=== PATIENT | male | born 1970 ===

== ENCOUNTER 2019-05-29 15:22 | Inpatient (IN) | payer OTHER ==
[2019-05-29 16:18] LABS: ABS Eosinophils 0.1 10^3/ul (0-0.6); ABS Lymphocytes 0.3 10^3/ul (1.0-4.8); ABS Monocytes 0.8 10^3/ul (0-0.8); ABS Neutrophils 13.4 10^3/ul (1.5-7.7); Eosinophil % 0.4 %; Hematocrit 39 % (42-52); Lymphocyte % 2.2 %; Mean Corpuscular HGB Conc 33 g/dL (31-36); Mean Corpuscular Hemoglobin 26 pg (27-31); Mean Corpuscular Volume 77 fL (80-94); Red Blood Count 5.09 10^6 /uL (4.18-5.48); Red Cell Distribution Width 15 % (10-15); White Blood Count 14.6 10^3/uL (3.5-10.8)
[2019-05-29 16:26] LABS: ALT 102 U/L (7-52); AST 71 U/L (13-39); Albumin 3.8 g/dL (3.2-5.2); Albumin/Globulin Ratio 1.3 (1-3); Alkaline Phosphatase 67 U/L (34-104); Anion Gap 9 mmol/L (2-11); Blood Urea Nitrogen 27 mg/dL (6-24); CO2 Carbon Dioxide 24 mmol/L (22-32); Calcium 8.6 mg/dL (8.6-10.3); Chloride 106 mmol/L (101-111); EGFR African American 91.8 (>60); EGFR Non-African American 75.9 (>60); Glucose 109 mg/dL (70-100); Magnesium 2.1 mg/dL (1.9-2.7); Potassium 3.9 mmol/L (3.5-5.0); Sodium 139 mmol/L (135-145); Total Protein 6.8 g/dL (6.4-8.9)
--- NOTE | 2019-05-29 16:31 | ED ---
Dizziness - HPI Summary HPI Summary: This patient is a 49 year old male presenting to [facility] with a chief complaint of fatigue and lightheadedness. He states woke up this morning with these symptoms. He states he had a headache last night. His caregiver states he was not producing words right. He denies cough. 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 Character: Lightheaded - Allergies/Home Medications Allergies/Adverse Reactions: Allergies Allergy/AdvReac Type Severity Reaction Status Date / Time No Known Allergies Allergy Verified 05/29/19 15:28 Home Medications: Home Medications Methylphenidate HCl [Methylphenidate HCl ER] 20 mg PO DAILY 05/29/19 [History Confirmed 05/29/19] Tolterodine Tartrate [Detrol LA] 4 mg PO DAILY 05/29/19 [History Confirmed 05/29] PMH/Surg Hx/FS Hx/Imm Hx Endocrine/Hematology History: Denies: Hx Diabetes Cardiovascular History: Denies: Hx Congestive Heart Failure, Hx Hypertension History: Denies: Hx Renal Disease Neurological History: Reports: Other Neuro Impairments/Disorders - SPINAL STENOSIS SURGERY (C-SPINE) 5 YRS AGO, ANTERIOR APPROACH - Surgical History Surgery Procedure, Year, and Place: FOR SPINAL STENOSIS Infectious Disease History: No Infectious Disease History: Denies: Traveled Outside the [place] in Last 30 Days - Family History Known Family History: Negative: Seizure Disorder - Social History Alcohol Use: Occasionally Substance Use Type: Reports: None Smoking Status (MU): Never Smoked Tobacco Review of Systems Positive: Fatigue Negative: Cough Neurological: Other - Dizziness, unable to form words/phrases Positive: Headache All Other Systems Reviewed And Are Negative: Yes Physical Exam - Summary Physical Exam Summary: Appearance: The patient is well-nourished in no acute distress and in no acute pain. Skin: The skin is warm and dry and skin color reflects adequate perfusion. HEENT: The head is normocephalic and atraumatic. The pupils are equal and reactive. The conjunctivae are clear and without drainage. Nares are patent and without drainage. Mouth reveals moist mucous membranes and the throat is without erythema and exudate. The external ears are intact. The ear canals are patent and without drainage. The tympanic membranes are intact. Neck: The neck is supple with full range of motion and non-tender. There are no carotid bruits. There is no neck vein distension. Respiratory: Chest is non-tender. Lungs are clear to auscultation and breath sounds are symmetrical and equal. Cardiovascular: Heart is regular rate and rhythm. There is no murmur or rub auscultated. There is no peripheral edema and pulses are symmetrical and equal. Abdomen: The abdomen is soft and non-tender. There are normal bowel sounds heard in all four quadrants and there is no organomegaly palpated. Musculoskeletal: There is no back tenderness noted. Extremities are non-tender with full range of motion. There is good capillary refill. There is no peripheral edema or calf tenderness elicited. Neurological: Patient is alert and oriented to person, place and time. The patient has symmetrical motor strength in all four extremities. Cranial nerves are grossly intact. Deep tendon reflexes are symmetrical and equal in all four extremities. Psychiatric: The patient has an appropriate affect and does not exhibit any anxiety or depression. Triage Information Reviewed: Yes Vital Signs On Initial Exam: Initial Vitals Temp Pulse Resp BP Pulse Ox 99.8 F 74 19 92/52 96 05/29/19 15:23 05/29/19 15:23 05/29/19 15:23 05/29/19 15:23 05/29/19 15:23 Vital Signs Reviewed: Yes Procedures - Sedation Patient Received Moderate/Deep Sedation with Procedure: No Diagnostics - Vital Signs Vital Signs Temp Pulse Resp BP Pulse Ox 05/29/19 15:23 99.8 F 74 19 92/52 96 - Laboratory Lab Results: Lab Results 05/29/19 Range/Units 16:01 WBC 14.6 H (3.5-10.8) 10^3/uL RBC 5.09 (4.18-5.48) 10^6 /uL Hgb 13.0 L (14.0-18.0) g/dL Hct 39 L (42-52) % MCV 77 L (80-94) fL MCH 26 L (27-31) pg MCHC 33 (31-36) g/dL RDW 15 (10-15) % Plt Count Pending MPV Pending Neut % (Auto) 92.1 % Lymph % (Auto) 2.2 % [place] % (Auto) 5.2 % Eos % (Auto) 0.4 % Baso % (Auto) 0.1 % Absolute Neuts (auto) 13.4 H (1.5-7.7) 10^3/ul Absolute Lymphs (auto) 0.3 L (1.0-4.8) 10^3/ul Absolute Monos (auto) 0.8 (0-0.8) 10^3/ul Absolute Eos (auto) 0.1 (0-0.6) 10^3/ul Absolute Basos (auto) 0.0 (0-0.2) 10^3/ul Absolute Nucleated RBC 0.0 10^3/ul Nucleated RBC % 0.0 Result Diagrams: 05/29/19 16:01 05/29/19 16:01 Lab Statement: Any lab studies that have been ordered have been reviewed, and results considered in the medical decision making process. - EKG 1529 Cardiac Rate: NL - 75 BPM EKG Rhythm: Sinus Rhythm Summary of EKG Findings: Probable subacute septal infarct. ED Physician has reviewed and interpreted this EKG. 1639 Cardiac Rate: NL - 72 BPM EKG Rhythm: Sinus Rhythm Summary of EKG Findings: Probable septal ischemia. ED Provider has reviewed and interpreted this EKG. Dizzy Course/Dx - Course Course Of Treatment: Mr. Mayfield was nontoxic in appearance on presentation. He was articulate and oriented at that time. He has a history of urinary tract infections as he self catheters secondary to paraplegia. I expected that this was likely a urinary tract infection and ordered fluids and antibiotics for him. His troponin surprisingly returned at 0.24. His EKG showed no acute change from previous EKGs. I spoke with Dr. Calles who recommended serial EKGs and troponins while treating for presumed sepsis. - Diagnoses Provider Diagnoses: UTI (urinary tract infection), Elevated troponin - Provider Notifications Discussed Care Of Patient With: Domingo Calles - Cardiology Time Discussed With Above Provider: 17:07 - Critical Care Time Critical Care Time: 30-74 min Discharge ED - Sign-Out/Discharge Documenting (check all that apply): Patient Departure - Admission - Discharge Plan Condition: Stable Disposition: ADMITTED TO [facility] Referrals: Jose Daniel Prescott MD [Primary Care Provider] - - Billing Disposition and Condition Condition: STABLE Disposition: Admitted to [facility] - Attestation Statements Document Initiated by Scribe: Yes Documenting Scribe: Noman Potts Provider For Whom Jayceeibe is Documenting (Include Credential): Cholo Cesar MD Scribe Attestation: I, Noman Potts, scribed for Cholo Cesar MD on 05/29/19 at 1900. Scribe Documentation Reviewed: Yes Provider Attestation: The documentation as recorded by the jayceeibe, Noman Potts accurately reflects the service I personally performed and the decisions made by me, Cholo Cesar MD Status of Scribe Document: Viewed
[2019-05-29 16:32] LABS: Troponin I 0.24 ng/mL (<0.03)
[2019-05-29 16:44] LABS: Mean Platelet Volume 8.5 fL (7.4-10.4); Platelet Count 96 10^3/uL (150-450)
[2019-05-29 16:48] LABS: Urine Appearance Cloudy; Urine Bilirubin Negative (Negative); Urine Blood 3+ (Negative); Urine Color Amber; Urine Glucose Negative (Negative); Urine Ketones Negative (Negative); Urine Nitrite Positive (Negative); Urine Protein 2+(100 mg/dL) (Negative); Urine Specific Gravity 1.019 (1.010-1.030); Urine Urobilinogen Negative (Negative)
[2019-05-29] MEDS ORDERED: NS 0.9% 1000 ML** 2,000 ML IV ONE (16:51)
[2019-05-29] MEDS ORDERED: Ciprofloxacin 400MG IVPREMIX(* 400 MG/200 ML BAG IVPB ONE (16:52)
[2019-05-29 16:53] LABS: Urine Bacteria Absent (Absent); Urine Red Blood Cell 3+(>10/hpf) (Absent); Urine White Blood Cell 3+(>20/hpf) (Absent)
[2019-05-29 17:05] LABS: TSH (Thyroid Stimulating Horm) 2.65 mcIU/mL (0.34-5.60)
[2019-05-29 17:51] LABS: C Reactive Protein 210.99 mg/L (<8.01)
[2019-05-29 18:04] LABS: LDH 284 U/L (140-271)
[2019-05-29 18:05] LABS: Cholesterol 143 mg/dL; HDL Cholesterol 54.7 mg/dL; LDL Cholesterol 59 mg/dL; Triglycerides 148 mg/dL
[2019-05-29] MEDS ORDERED: Atorvastatin* 40 MG TAB PO ONE (18:34)
[2019-05-29] MEDS ORDERED: Aspirin 81 mg CHEW TAB* 81 MG TAB.CHEW PO ONE (18:34)
[2019-05-29 18:43] LABS: Erythrocyte Sed Rate 14 mm/Hr (0-14)
[2019-05-29] MEDS ORDERED: hydrALAZINE IV* 20 MG/ML VIAL IV SLOW PU PRN ×2 (19:33→19:35)
[2019-05-29] MEDS ORDERED: Labetalol IV* 5 MG/ML 20 ML VIAL IV PUSH PRN (19:34)
[2019-05-29 19:45] LABS: Troponin I 0.19 ng/mL (<0.03)
[2019-05-29 20:37] LABS: Hepatitis B Surface Antigen Nonreactive (Nonreactive)
[2019-05-29 20:54] LABS: Hepatitis C Antibody Negative (Negative)
[2019-05-29] MEDS: Baclofen TAB* 20 MG PO SCH (20:57)
[2019-05-29] MEDS: Acetaminophen TAB* 325 MG PO PRN (21:46)
[2019-05-29 22:19] LABS: Influenza A Molecular Negative (Negative); Influenza B Molecular Negative (Negative)
[2019-05-29 22:35] LABS: Troponin I 0.18 ng/mL (<0.03)
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
[2019-05-29] MEDS ORDERED: Acetaminophen TAB* 325 MG PO ONE (23:34)
[2019-05-30] MEDS: cefTRIAXone(*) 1 GM in NS 0.9% 50 ML* 50 ML IVPB SCH ×2 (01:36→20:22)
[2019-05-30 06:29] LABS: Hematocrit 35 % (42-52); Hemoglobin 11.5 g/dL (14.0-18.0); Mean Corpuscular HGB Conc 33 g/dL (31-36); Mean Corpuscular Hemoglobin 26 pg (27-31); Mean Corpuscular Volume 77 fL (80-94); Mean Platelet Volume 8.8 fL (7.4-10.4); Platelet Count 69 10^3/uL (150-450); Red Blood Count 4.46 10^6 /uL (4.18-5.48); Red Cell Distribution Width 15 % (10-15); White Blood Count 10.7 10^3/uL (3.5-10.8)
[2019-05-30 06:46] LABS: Albumin 3.2 g/dL (3.2-5.2); Albumin/Globulin Ratio 1.3 (1-3); BUN/Creatinine Ratio 29.5 (8-20); Calcium 7.9 mg/dL (8.6-10.3); EGFR Non-African American 105.8 (>60); Globulin 2.5 g/dL (2-4); Indirect Bilirubin 0.4 mg/dL (0.3-1.0); Potassium 3.3 mmol/L (3.5-5.0); Total Bilirubin 0.6 mg/dL (0.2-1.0); Total Protein 5.7 g/dL (6.4-8.9)
[2019-05-30 07:30] LABS: Microcytosis 1+
[2019-05-30 07:32] LABS: ABS Eosinophils 0.1 10^3/ul (0-0.6); ABS Lymphocytes 0.7 10^3/ul (1.0-4.8); ABS Monocytes 0.6 10^3/ul (0-0.8); ABS Neutrophils 9.3 10^3/ul (1.5-7.7); Eosinophil % 0.9 %; Lymphocyte % 6.5 %
--- NOTE | 2019-05-30 09:32 | PN ---
Subjective Date of Service: 05/30/19 Interval History: Pt is feeling ok this AM. He continued to have chills last night. He states he still feels more lethargic than normal. He ate without difficulty this AM. Objective Active Medications: Acetaminophen (Tylenol Tab*) 650 mg PO Q6H PRN PRN Reason: TEMPERATURE > 100.4 Last Admin: 05/29/19 21:46 Dose: 650 mg Aspirin (Aspirin 81 Mg Chew Tab*) 81 mg PO DAILY REPLACED BY [facility] Atorvastatin Calcium (Lipitor*) 40 mg PO 1700 REPLACED BY [facility] Baclofen (Lioresal Tab*) 20 mg PO QID REPLACED BY [facility] Last Admin: 05/29/19 20:57 Dose: 20 mg Enoxaparin Sodium (Lovenox(*)) 40 mg SUBCUT Q24H REPLACED BY [facility] Hydralazine HCl (Apresoline Iv*) 20 mg IV SLOW PU Q2H PRN PRN Reason: BLOOD PRESSURE Ceftriaxone Sodium 1 gm/ (Sodium Chloride) 50 mls @ 100 mls/hr IVPB Q24HR@2100 REPLACED BY [facility] Last Admin: 05/30/19 01:36 Dose: 100 mls/hr Labetalol HCl (Trandate Iv*) 20 mg IV PUSH Q2H PRN PRN Reason: BLOOD PRESSURE Methylphenidate HCl (Concerta Er Tab*) 18 mg PO DAILY REPLACED BY [facility] Oxybutynin Chloride (Ditropan Xl Tab*) 10 mg PO DAILY REPLACED BY [facility]; Protocol Sertraline HCl (Zoloft*) 50 mg PO DAILY REPLACED BY [facility] Vital Signs - 8 hr 05/30/19 05/30/19 03:54 08:13 Temperature 99.2 F 97.9 F Pulse Rate 71 65 Respiratory 20 16 Rate Blood Pressure 97/54 108/58 (mmHg) O2 Sat by Pulse 97 97 Oximetry Oxygen Devices in Use Now: None Appearance: Middle aged male sitting up in bed, NAD Eyes: No Scleral Icterus Ears/Nose/Mouth/Throat: Mucous Membranes Moist Respiratory: Symmetrical Chest Expansion and Respiratory Effort, Clear to Auscultation Cardiovascular: NL Sounds; No Murmurs; No JVD, RRR, No Edema Abdominal: NL Sounds; No Tenderness; No Distention Extremities: No Clubbing, Cyanosis Skin: No Nodules or Sclerosis Neurological: Alert and Oriented x 3 Result Diagrams: 05/30/19 05:45 05/30/19 05:45 Additional Lab and Data: Lab Results 05/29/19 Range/Units 16:01 WBC 14.6 H (3.5-10.8) 10^3/uL RBC 5.09 (4.18-5.48) 10^6 /uL Hgb 13.0 L (14.0-18.0) g/dL Hct 39 L (42-52) % MCV 77 L (80-94) fL MCH 26 L (27-31) pg MCHC 33 (31-36) g/dL RDW 15 (10-15) % Plt Count Pending MPV Pending Neut % (Auto) 92.1 % Lymph % (Auto) 2.2 % [place] % (Auto) 5.2 % Eos % (Auto) 0.4 % Baso % (Auto) 0.1 % Absolute Neuts (auto) 13.4 H (1.5-7.7) 10^3/ul Absolute Lymphs (auto) 0.3 L (1.0-4.8) 10^3/ul Absolute Monos (auto) 0.8 (0-0.8) 10^3/ul Absolute Eos (auto) 0.1 (0-0.6) 10^3/ul Absolute Basos (auto) 0.0 (0-0.2) 10^3/ul Absolute Nucleated RBC 0.0 10^3/ul Nucleated RBC % 0.0 Assess/Plan/Problems-Billing Mr Mayfield is a 49 yo M who has a h/o autonomic dysfunction, neurogenic bladder and paraplegia who presented to the ER with c/o fatigue, chills and marked hypertension the night prior to admission and was admitted for SIRS secondary to probable UTI. - Patient Problems (1) Sepsis Current Visit: Yes Status: Acute Comment: On admission pt was not septic as he only had 1 SIRS criteria. However, last night he developed fever of 101.4F and was by definition septic. Sepsis this AM appears to have resolved. (2) UTI (urinary tract infection) Current Visit: Yes Status: Acute Comment: Pt with probable UTI given abnormal urinalysis. He has a neurogenic bladder and self catheterizes at home. Await urine culture but for now continue ceftriaxone. (3) Demand ischemia Current Visit: Yes Status: Acute Code(s): I24.8 - OTHER FORMS OF ACUTE ISCHEMIC HEART DISEASE SNOMED Code(s): 205587552 Comment: Pt with probable demand ischemia. No reported chest pain. Echocardiogram pending. (4) Autonomic dysfunction Current Visit: Yes Status: Acute Code(s): G90.9 - DISORDER OF THE AUTONOMIC NERVOUS SYSTEM, UNSPECIFIED SNOMED Code(s): 03151290 (5) Paraplegia Current Visit: Yes Status: Acute Code(s): G82.20 - PARAPLEGIA, UNSPECIFIED SNOMED Code(s): 57540232 (6) DVT prophylaxis Current Visit: Yes Status: Acute Code(s): Z29.9 - ENCOUNTER FOR PROPHYLACTIC MEASURES, UNSPECIFIED SNOMED Code(s): 816953881 Comment: lovenox (7) Full code status Current Visit: Yes Status: Acute Code(s): Z78.9 - OTHER SPECIFIED HEALTH STATUS SNOMED Code(s): 381466988
[2019-05-30] MEDS ORDERED: Potassium Chlor TAB* 20 MEQ TAB.ER PO ONE (09:42)
[2019-05-30] MEDS: Methylphenidate ER TAB* 18 MG PO SCH (09:47)
[2019-05-30] MEDS: Aspirin 81 mg CHEW TAB* 81 MG TAB.CHEW PO SCH (09:48)
[2019-05-30] MEDS: Sertraline* 50 MG TAB PO SCH (09:48)
[2019-05-30] MEDS: Baclofen TAB* 20 MG PO SCH ×4 (09:48→20:22)
[2019-05-30] MEDS: Oxybutynin XL TAB* 5 MG PO SCH (09:48)
--- NOTE | 2019-05-30 09:55 | ECHO ---
*[facility]* [place] [address] Fax #: [phone] Transthoracic Echocardiogram Patient: José Miguel Mayfield : 1970 Study Date: 05/30/2019 Age: 49 Gender: M HR: 64 bpm Height: 67 in /170.2 cm BSA: 1.82 m^2 Weight: 156.7 lb /71.2 kg BMI: 24.6 kg/m^2 *Professional Nurse: * Kaylan Marrufo [facility] *Referring Physician: * Stan Waters *Reading Physician: * Cole Brar MD Indications: Abnormal EKG. History: Risk factors: Hypertension. Conclusions Summary: - Left ventricle: Systolic function is normal. The estimated ejection fraction is 60-65%. Wall motion is normal; there are no regional wall motion abnormalities. - Right ventricle: Systolic function is normal. - Mitral valve: There is trace regurgitation. - Aortic valve: There is no evidence of stenosis. There is trace regurgitation. - Tricuspid valve: There is trace regurgitation. - Pulmonary arteries: Systolic pressure can not be accurately estimated. - Compared to study of 03/31/11, there is no change. Study data: Transthoracic echocardiogram. Procedure: Transthoracic echocardiography was performed. Image quality was good. Complete 2D, spectral Doppler, and color flow Doppler. Location: Bedside. Patient status: Inpatient. Patient room number: 450. Rhythm: Normal sinus rhythm. Findings Left ventricle: The cavity size is normal. Wall thickness is at the upper limits of normal. Systolic function is normal. The estimated ejection fraction is 60-65%. Wall motion is normal; there are no regional wall motion abnormalities. Left ventricular diastolic function parameters are normal. Right ventricle: The cavity size is normal. Systolic function is normal. Left atrium: The atrium is severely dilated. Right atrium: The atrium is mildly dilated. Mitral valve: The leaflets are mildly thickened. There is no evidence of stenosis. There is trace regurgitation. Aortic valve: The valve is trileaflet. The leaflets are mildly thickened. There is no evidence of stenosis. There is trace regurgitation. Tricuspid valve: The leaflets are normal thickness. There is no evidence of stenosis. There is trace regurgitation. Pulmonic valve: The leaflets are normal thickness. There is no evidence of stenosis. There is trace regurgitation. Aorta: Aortic root: The aortic root is appears normal. Ascending aorta: The ascending aorta is appears normal. Aortic arch: The aortic arch is appears normal. Pericardium: There is no significant pericardial effusion. Pulmonary arteries: The main pulmonary artery is normal-sized. Systolic pressure can not be accurately estimated. Systemic veins: Inferior vena cava: The vessel is normal in size. There is (>= 50%) respiratory change in the IVC dimension. Measurements Left ventricle Value Ref Right atrium continued Value Ref CASANDRA, LAX 4.8 cm 4.2 - 5.8 ML dim, ES, A4C 3.8 cm 2.6 - 4.4 ESD, LAX 3.1 cm 2.5 - 4.0 Estimated RAP 3 mm Hg --------- FS, LAX 35 % 25 - 43 PW, ED, LAX 1.0 cm 0.6 - 1.0 Aortic valve Value Ref FS 35 % 25 - 43 Wesley diam, ED 2.0 cm --------- PW, ED 1.0 cm 0.6 - 1.0 Peak v, S 1.6 m/sec --------- E', lat wesley, TDI 15.0 cm/sec >=10.0 VTI, S 31.1 cm -- ------- E/e', lat wesley, 7 Mean grad, S 6.0 mm Hg ----- ---- TDI Peak grad, S 10.0 mm Hg --------- E', med wesley, TDI 12.9 cm/sec >=7.0 LVOT/AV, VTI ratio 0.8 -- ------- E/e', med wesley, 8 JONEL, VTI 2.52 cm^2 ----- ---- TDI JONEL, Vmax 2.49 cm^2 --------- E', avg, TDI 14.0 cm/sec E/e', avg, TDI 8 <=14 Mitral valve Value Re f Peak E 1.05 m/sec --------- LVOT Value Ref Peak A 0.5 m/sec --------- Diam, S 2.00 cm Decel time 197 ms --------- Area 3.1 cm^2 Peak grad, D 4.4 mm Hg --------- Peak meg, S 1.27 m/sec Peak E/A ratio 2.1 --------- VTI, S 25.0 cm Peak grad, S 6 mm Hg Pulmonic valve Value Ref Mean grad, S 4 mm Hg Peak v, S 1.31 m/sec --------- SV 79 ml Peak grad, S 7.0 mm Hg --------- SV/bsa 43 ml/m^2 Aortic root Value Ref Ventricular septum Value Ref Root diam 2.8 cm <4.0 IVS, ED 1.0 cm 0.6 - 1.0 Ascending aorta Value Ref Right ventricle Value Ref AAo AP diam, S 2.9 cm --------- CASANDRA, LAX 2.3 cm CASANDRA minor ax, 3.2 cm 1.9 - 3.5 Aortic arch Value Ref A4C mid Arch diam 1.8 cm --------- Left atrium Value Ref Decending aorta Value Ref AP dim, ES 3.00 cm 3.00 - Tessy peak meg 1.4 m/sec --------- 4.00 ML dim, A4C 5.2 cm Inferior vena cava Value Ref SI dim, A4C 6.1 cm Diam 1.6 cm --------- Vol/bsa, ES, 1-p (H) 45 ml/m^2 12 - 37 A4C Vol/bsa, ES, A/L (H) 54 ml/m^2 16 - 34 Right atrium Value Ref SI dim, ES (H) 5.4 cm 3.4 - 5.3 Legend: (L) and (H) suhail values outside specified reference range. Prepared and electronically signed by Cole Brar MD 05/30/2019 09:55
[2019-05-30] MEDS: Acetaminophen TAB* 325 MG PO PRN (16:31)
[2019-05-30] MEDS: Enoxaparin(*) 40 MG/0.4 ML SYR SUBCUT SCH (16:45)
[2019-05-30] MEDS: Atorvastatin* 40 MG TAB PO SCH (16:45)
[2019-05-30] MEDS ORDERED: Acetaminophen TAB* 325 MG PO ONE (20:09)
[2019-05-31 07:32] LABS: ABS Lymphocytes 0.5 10^3/ul (1.0-4.8); ABS Monocytes 0.7 10^3/ul (0-0.8); ABS Neutrophils 8.2 10^3/ul (1.5-7.7); Eosinophil % 0.5 %; Hematocrit 35 % (42-52); Hemoglobin 11.7 g/dL (14.0-18.0); Lymphocyte % 5.4 %; Mean Corpuscular HGB Conc 33 g/dL (31-36); Mean Corpuscular Hemoglobin 25 pg (27-31); Mean Corpuscular Volume 77 fL (80-94); Mean Platelet Volume 9.1 fL (7.4-10.4); Platelet Count 77 10^3/uL (150-450); Red Blood Count 4.62 10^6 /uL (4.18-5.48); Red Cell Distribution Width 16 % (10-15); White Blood Count 9.4 10^3/uL (3.5-10.8)
[2019-05-31 07:44] LABS: BUN/Creatinine Ratio 20.6 (8-20); Calcium 8.2 mg/dL (8.6-10.3); EGFR Non-African American 123.9 (>60)
[2019-05-31] MEDS ORDERED: diPHENhydraMINE PO* 25 MG PO PRN ×3 (08:39→23:45)
[2019-05-31] MEDS ORDERED: Metoclopramide IV* 5 MG/ML 2 ML VIAL IV PRN (08:39)
[2019-05-31] MEDS: Oxybutynin XL TAB* 5 MG PO SCH (09:23)
[2019-05-31] MEDS: Methylphenidate ER TAB* 18 MG PO SCH (09:24)
[2019-05-31] MEDS: Baclofen TAB* 20 MG PO SCH ×4 (09:24→20:47)
[2019-05-31] MEDS: Sertraline* 50 MG TAB PO SCH (09:25)
[2019-05-31] MEDS: Aspirin 81 mg CHEW TAB* 81 MG TAB.CHEW PO SCH (09:25)
[2019-05-31] MEDS: Atorvastatin* 40 MG TAB PO SCH (16:02)
[2019-05-31] MEDS: Enoxaparin(*) 40 MG/0.4 ML SYR SUBCUT SCH (16:12)
--- NOTE | 2019-05-31 20:30 | PN ---
Subjective Date of Service: 05/31/19 Interval History: Patient c/o headaches this AM, improved with reglan. Patient tells me he did have chills yesterday evening. Denies difficulty breathing, chest pain, dizziness/lightheadedness, abd pain (though mentions he never has abd pain because of paraplegia). Objective Active Medications: Acetaminophen (Tylenol Tab*) 650 mg PO Q6H PRN PRN Reason: TEMPERATURE > 100.4 Last Admin: 05/30/19 16:31 Dose: 650 mg Aspirin (Aspirin 81 Mg Chew Tab*) 81 mg PO DAILY [facility] Last Admin: 05/31/19 09:25 Dose: 81 mg Atorvastatin Calcium (Lipitor*) 40 mg PO 1700 [facility] Last Admin: 05/31/19 16:02 Dose: 40 mg Baclofen (Lioresal Tab*) 20 mg PO QID [facility] Last Admin: 05/31/19 16:02 Dose: 20 mg Diphenhydramine HCl (Benadryl Po*) 25 mg PO ONCE PRN PRN Reason: migraine Last Admin: 05/31/19 12:25 Dose: 25 mg Enoxaparin Sodium (Lovenox(*)) 40 mg SUBCUT Q24H [facility] Last Admin: 05/31/19 16:12 Dose: 40 mg Hydralazine HCl (Apresoline Iv*) 20 mg IV SLOW PU Q2H PRN PRN Reason: BLOOD PRESSURE Ceftriaxone Sodium 1 gm/ (Sodium Chloride) 50 mls @ 100 mls/hr IVPB Q24HR@2100 [facility] Last Admin: 05/30/19 20:22 Dose: 100 mls/hr Labetalol HCl (Trandate Iv*) 20 mg IV PUSH Q2H PRN PRN Reason: BLOOD PRESSURE Methylphenidate HCl (Concerta Er Tab*) 18 mg PO DAILY [facility] Last Admin: 05/31/19 09:24 Dose: 18 mg Metoclopramide HCl (Reglan Iv*) 5 mg IV ONCE PRN PRN Reason: migraine Last Admin: 05/31/19 09:37 Dose: 5 mg Oxybutynin Chloride (Ditropan Xl Tab*) 10 mg PO DAILY [facility]; Protocol Last Admin: 05/31/19 09:23 Dose: 10 mg Sertraline HCl (Zoloft*) 50 mg PO DAILY [facility] Last Admin: 05/31/19 09:25 Dose: 50 mg Vital Signs - 8 hr 05/31/19 05/31/19 15:27 19:15 Temperature 99.5 F 100.5 F Pulse Rate 63 63 Respiratory 20 24 Rate Blood Pressure 120/64 131/66 (mmHg) O2 Sat by Pulse 95 Oximetry Oxygen Devices in Use Now: None Appearance: Black male who appears younger than stated age, laying in bed, appearing comfortable and in NAD Eyes: No Scleral Icterus, - - PERRL Ears/Nose/Mouth/Throat: Mucous Membranes Moist Neck: Trachea Midline Respiratory: Symmetrical Chest Expansion and Respiratory Effort, Clear to Auscultation Cardiovascular: NL Sounds; No Murmurs; No JVD, RRR Abdominal: - - abd soft, nontender, nondistended Extremities: No Clubbing, Cyanosis, - - trace pitting edema pedally bilaterally Skin: No Rash or Ulcers Neurological: Alert and Oriented x 3 Result Diagrams: 05/31/19 07:02 05/31/19 07:02 Additional Lab and Data: Lab Results 05/29/19 Range/Units 16:01 WBC 14.6 H (3.5-10.8) 10^3/uL RBC 5.09 (4.18-5.48) 10^6 /uL Hgb 13.0 L (14.0-18.0) g/dL Hct 39 L (42-52) % MCV 77 L (80-94) fL MCH 26 L (27-31) pg MCHC 33 (31-36) g/dL RDW 15 (10-15) % Plt Count Pending MPV Pending Neut % (Auto) 92.1 % Lymph % (Auto) 2.2 % [place] % (Auto) 5.2 % Eos % (Auto) 0.4 % Baso % (Auto) 0.1 % Absolute Neuts (auto) 13.4 H (1.5-7.7) 10^3/ul Absolute Lymphs (auto) 0.3 L (1.0-4.8) 10^3/ul Absolute Monos (auto) 0.8 (0-0.8) 10^3/ul Absolute Eos (auto) 0.1 (0-0.6) 10^3/ul Absolute Basos (auto) 0.0 (0-0.2) 10^3/ul Absolute Nucleated RBC 0.0 10^3/ul Nucleated RBC % 0.0 Microbiology and Other Data: Microbiology 05/29/19 19:13 Aerobic Blood Culture - Preliminary Blood Venous Morganella Morganii Anaerobic Blood Culture - Preliminary Morganella Morganii 05/29/19 22:04 Aerobic Blood Culture - Preliminary Blood Venous Morganella Morganii Anaerobic Blood Culture - Preliminary Morganella Morganii 05/29/19 16:41 Urine Culture - Final Urine Citrobacter Freundii Morganella Morganii Assess/Plan/Problems-Billing Mr Mayfield is a 49 yo M PMHx C6-C7 paraplegia, h/o autonomic dysfunction, neurogenic bladder, depression/anxiety who presented to the ER with c/o fatigue , chills and marked hypertension the night prior to admission and was admitted for SIRS secondary to probable UTI. - Patient Problems (1) Sepsis Current Visit: Yes Status: Acute Comment: -On admission pt was not septic as he only had 1 SIRS criteria. However, after admission he developed fever of 101.4F and was by definition septic. Did again have a fever overnight -2/2 UTI, mgmt as below (2) UTI (urinary tract infection) Current Visit: Yes Status: Acute Comment: -Urine cx positive for morganella and citrobacter, both sensitive to ceftriaxone and will continue -febrile again o/n -leukocytosis has downtrended -risk factor of straight cathing for neurogenic bladder, discussed good practice (3) Bacteremia Current Visit: Yes Status: Acute Code(s): R78.81 - BACTEREMIA SNOMED Code( s): 2955043 Comment: -morganella bacteremia 2/2 UTI -ceftriaxone -drawing surveillance blood cultures (4) Autonomic dysfunction Current Visit: Yes Status: Acute Code(s): G90.9 - DISORDER OF THE AUTONOMIC NERVOUS SYSTEM, UNSPECIFIED SNOMED Code(s): 13411781 Comment: -good BP control -2/2 paraplegia (5) Paraplegia Current Visit: Yes Status: Acute Code(s): G82.20 - PARAPLEGIA, UNSPECIFIED SNOMED Code(s): 44772128 Comment: -C6-C7 quadriplegia with limited motion of UEs -supportive care (6) Elevated troponin Current Visit: Yes Status: Acute Code(s): R79.89 - OTHER SPECIFIED ABNORMAL FINDINGS OF BLOOD CHEMISTRY SNOMED Code(s): 750582489 Comment: -troponin elevated to 0.24 at admission, has since downtrended -echo without wall motion abnormalities -EKG without ischemic changes -likely ischemic demand -would likely benefit from outpatient stress test (7) DVT prophylaxis Current Visit: Yes Status: Acute Code(s): Z29.9 - ENCOUNTER FOR PROPHYLACTIC MEASURES, UNSPECIFIED SNOMED Code(s): 743345059 Comment: -lovenox (8) Full code status Current Visit: Yes Status: Acute Code(s): Z78.9 - OTHER SPECIFIED HEALTH STATUS SNOMED Code(s): 311511316 Status and Disposition: inpatient pending medical improvement
[2019-05-31] MEDS: Acetaminophen TAB* 325 MG PO PRN (20:47)
[2019-05-31] MEDS: cefTRIAXone(*) 1 GM in NS 0.9% 50 ML* 50 ML IVPB SCH (20:47)
[2019-06-01 07:00] LABS: Hematocrit 35 % (42-52); Hemoglobin 11.7 g/dL (14.0-18.0); Mean Corpuscular HGB Conc 33 g/dL (31-36); Mean Corpuscular Hemoglobin 26 pg (27-31); Mean Corpuscular Volume 77 fL (80-94); Mean Platelet Volume 8.6 fL (7.4-10.4); Platelet Count 87 10^3/uL (150-450); Red Blood Count 4.56 10^6 /uL (4.18-5.48); Red Cell Distribution Width 16 % (10-15); White Blood Count 9.1 10^3/uL (3.5-10.8)
[2019-06-01 07:11] LABS: BUN/Creatinine Ratio 19.1 (8-20); Calcium 8.4 mg/dL (8.6-10.3); EGFR Non-African American 123.9 (>60); Potassium 3.8 mmol/L (3.5-5.0)
[2019-06-01 07:59] LABS: ABS Eosinophils 0.1 10^3/ul (0-0.6); ABS Lymphocytes 0.9 10^3/ul (1.0-4.8); ABS Monocytes 1.1 10^3/ul (0-0.8); Eosinophil % 0.8 %; Lymphocyte % 10.2 %
[2019-06-01] MEDS: Oxybutynin XL TAB* 5 MG PO SCH (09:42)
[2019-06-01] MEDS: Methylphenidate ER TAB* 18 MG PO SCH (09:42)
[2019-06-01] MEDS: Sertraline* 50 MG TAB PO SCH (09:42)
[2019-06-01] MEDS: Baclofen TAB* 20 MG PO SCH ×4 (09:42→20:52)
[2019-06-01] MEDS: Aspirin 81 mg CHEW TAB* 81 MG TAB.CHEW PO SCH (09:42)
[2019-06-01] MEDS: Enoxaparin(*) 40 MG/0.4 ML SYR SUBCUT SCH (15:57)
[2019-06-01] MEDS: Atorvastatin* 40 MG TAB PO SCH (15:57)
--- NOTE | 2019-06-01 17:43 | PN ---
Subjective Date of Service: 06/01/19 Interval History: Pt is feeling ok currently. Still had fever as of this AM. He states his bowel are not behaving normally at this time. He thinks he needs a suppository. His family brought his in from home. Objective Active Medications: Acetaminophen (Tylenol Tab*) 650 mg PO Q6H PRN PRN Reason: TEMPERATURE > 100.4 Last Admin: 05/31/19 20:47 Dose: 650 mg Aspirin (Aspirin 81 Mg Chew Tab*) 81 mg PO DAILY [facility] Last Admin: 06/01/19 09:42 Dose: 81 mg Atorvastatin Calcium (Lipitor*) 40 mg PO 1700 [facility] Last Admin: 06/01/19 15:57 Dose: 40 mg Baclofen (Lioresal Tab*) 20 mg PO QID [facility] Last Admin: 06/01/19 15:56 Dose: 20 mg Diphenhydramine HCl (Benadryl Po*) 25 mg PO ONCE PRN PRN Reason: MIGRAINES Last Admin: 05/31/19 23:26 Dose: 25 mg Enoxaparin Sodium (Lovenox(*)) 40 mg SUBCUT Q24H [facility] Last Admin: 06/01/19 15:57 Dose: 40 mg Hydralazine HCl (Apresoline Iv*) 20 mg IV SLOW PU Q2H PRN PRN Reason: BLOOD PRESSURE Ceftriaxone Sodium 1 gm/ (Sodium Chloride) 50 mls @ 100 mls/hr IVPB Q24HR@2100 [facility] Last Admin: 05/31/19 20:47 Dose: 100 mls/hr Labetalol HCl (Trandate Iv*) 20 mg IV PUSH Q2H PRN PRN Reason: BLOOD PRESSURE Methylphenidate HCl (Concerta Er Tab*) 18 mg PO DAILY [facility] Last Admin: 06/01/19 09:42 Dose: 18 mg Metoclopramide HCl (Reglan Iv*) 5 mg IV ONCE PRN PRN Reason: migraine Last Admin: 05/31/19 09:37 Dose: 5 mg Oxybutynin Chloride (Ditropan Xl Tab*) 10 mg PO DAILY [facility]; Protocol Last Admin: 06/01/19 09:42 Dose: 10 mg Sertraline HCl (Zoloft*) 50 mg PO DAILY [facility] Last Admin: 06/01/19 09:42 Dose: 50 mg Vital Signs - 8 hr 06/01/19 11:42 Temperature 99.3 F Pulse Rate 63 Respiratory 20 Rate Blood Pressure 114/63 (mmHg) O2 Sat by Pulse 97 Oximetry Oxygen Devices in Use Now: None Appearance: Middle aged male lying in bed, NAD Eyes: No Scleral Icterus Ears/Nose/Mouth/Throat: Mucous Membranes Moist Respiratory: Symmetrical Chest Expansion and Respiratory Effort, Clear to Auscultation Cardiovascular: NL Sounds; No Murmurs; No JVD, RRR, No Edema Abdominal: - - tremoring of abdominal muscles, difficult to hear bowel sounds over the tremoring Extremities: No Clubbing, Cyanosis Skin: No Nodules or Sclerosis Neurological: Alert and Oriented x 3 Result Diagrams: 06/01/19 06:40 06/01/19 06:40 Additional Lab and Data: Lab Results 05/29/19 Range/Units 16:01 WBC 14.6 H (3.5-10.8) 10^3/uL RBC 5.09 (4.18-5.48) 10^6 /uL Hgb 13.0 L (14.0-18.0) g/dL Hct 39 L (42-52) % MCV 77 L (80-94) fL MCH 26 L (27-31) pg MCHC 33 (31-36) g/dL RDW 15 (10-15) % Plt Count Pending MPV Pending Neut % (Auto) 92.1 % Lymph % (Auto) 2.2 % [place] % (Auto) 5.2 % Eos % (Auto) 0.4 % Baso % (Auto) 0.1 % Absolute Neuts (auto) 13.4 H (1.5-7.7) 10^3/ul Absolute Lymphs (auto) 0.3 L (1.0-4.8) 10^3/ul Absolute Monos (auto) 0.8 (0-0.8) 10^3/ul Absolute Eos (auto) 0.1 (0-0.6) 10^3/ul Absolute Basos (auto) 0.0 (0-0.2) 10^3/ul Absolute Nucleated RBC 0.0 10^3/ul Nucleated RBC % 0.0 Microbiology and Other Data: Microbiology 05/29/19 19:13 Aerobic Blood Culture - Preliminary Blood Venous Morganella Morganii Anaerobic Blood Culture - Preliminary Morganella Morganii 05/29/19 22:04 Aerobic Blood Culture - Preliminary Blood Venous Morganella Morganii Anaerobic Blood Culture - Preliminary Morganella Morganii 05/29/19 16:41 Urine Culture - Final Urine Citrobacter Freundii Morganella Morganii Assess/Plan/Problems-Billing Mr Mayfield is a 49 yo M PMHx C6-C7 paraplegia, h/o autonomic dysfunction, neurogenic bladder, depression/anxiety who presented to the ER with c/o fatigue , chills and marked hypertension the night prior to admission and was admitted for SIRS secondary to probable UTI. - Patient Problems (1) Sepsis Current Visit: Yes Status: Acute Comment: Sepsis secondary to UTI/ pyelonephritis. Pt continues to have intermittent fevers. I would prefer he be 24hr without a fever before being discharged home. (2) UTI (urinary tract infection) Current Visit: Yes Status: Acute Comment: Pt with urine culture positive for morganella and citrobacter, both sensitive to ceftriaxone and will continue. Blood cultures positive for morganella. He appears to have pyelonephritis on US. Likely does not experience any flank pain due to his paraplegia. Will need 14 day course of therapy. ID consult obtained. (3) Demand ischemia Current Visit: Yes Status: Acute Code(s): I24.8 - OTHER FORMS OF ACUTE ISCHEMIC HEART DISEASE SNOMED Code(s): 979301006 Comment: Pt with probable demand ischemia. No reported chest pain. Echocardiogram unrevealing. May benefit from stress test as outpatient. (4) Autonomic dysfunction Current Visit: Yes Status: Acute Code(s): G90.9 - DISORDER OF THE AUTONOMIC NERVOUS SYSTEM, UNSPECIFIED SNOMED Code(s): 74292820 Comment: BP is under good control. It is felt his autonomic dysfunction is secondary to his paraplegia. (5) Paraplegia Current Visit: Yes Status: Acute Code(s): G82.20 - PARAPLEGIA, UNSPECIFIED SNOMED Code(s): 35276532 Comment: C6-C7 quadriplegia with motion of UEs but not normal motion. Continue supportive care (6) DVT prophylaxis Current Visit: Yes Status: Acute Code(s): Z29.9 - ENCOUNTER FOR PROPHYLACTIC MEASURES, UNSPECIFIED SNOMED Code(s): 910803736 Comment: lovenox (7) Full code status Current Visit: Yes Status: Acute Code(s): Z78.9 - OTHER SPECIFIED HEALTH STATUS SNOMED Code(s): 083802847 Status and Disposition: .
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
[2019-06-01] MEDS ORDERED: ENEMEEZ PR PRN (18:59)
[2019-06-01] MEDS: cefTRIAXone(*) 1 GM in NS 0.9% 50 ML* 50 ML IVPB SCH (23:05)
[2019-06-01] MEDS ORDERED: diPHENhydraMINE PO* 25 MG PO PRN (23:36)
[2019-06-01] MEDS: Acetaminophen TAB* 325 MG PO PRN (23:54)
[2019-06-02 06:30] LABS: Hematocrit 36 % (42-52); Hemoglobin 11.7 g/dL (14.0-18.0); Mean Corpuscular HGB Conc 33 g/dL (31-36); Mean Corpuscular Hemoglobin 25 pg (27-31); Mean Corpuscular Volume 77 fL (80-94); Mean Platelet Volume 8.2 fL (7.4-10.4); Platelet Count 98 10^3/uL (150-450); Red Blood Count 4.63 10^6 /uL (4.18-5.48); Red Cell Distribution Width 16 % (10-15)
[2019-06-02 06:43] LABS: Albumin 3.2 g/dL (3.2-5.2); Albumin/Globulin Ratio 0.9 (1-3); Globulin 3.5 g/dL (2-4); Indirect Bilirubin 0.5 mg/dL (0.3-1.0); Total Bilirubin 0.7 mg/dL (0.2-1.0); Total Protein 6.7 g/dL (6.4-8.9)
[2019-06-02] MEDS: Oxybutynin XL TAB* 5 MG PO SCH (09:43)
[2019-06-02] MEDS: Aspirin 81 mg CHEW TAB* 81 MG TAB.CHEW PO SCH (09:43)
[2019-06-02] MEDS: Baclofen TAB* 20 MG PO SCH ×2 (09:43→12:35)
[2019-06-02] MEDS: Sertraline* 50 MG TAB PO SCH (09:44)
[2019-06-02] MEDS: Methylphenidate ER TAB* 18 MG PO SCH (09:44)
--- NOTE | 2019-06-02 10:05 | PN ---
Progress Note - Progress Note Date of Service: 06/02/19 SOAP: Subjective: CC: pyelonephritis HPI: 49 year old man with neurogenic bladder and self catheterizes admitted with fever, rigors, chills, malaise. Found to have bacteremia. Insensate lower abdomen. US showed pyelonephritis. No fever or chills overnight, feeling like himself. Appetite is good, no rash or diarrhea. Objective: Vital Signs Temp 37.2 C 06/02/19 08:10 Pulse 48 06/02/19 08:10 Resp 20 06/02/19 08:10 BP 148/77 06/02/19 08:10 Pulse Ox 98 06/02/19 08:10 Intake & Output 06/01/19 06/02/19 06/02/19 18:59 06:59 18:59 Intake Total 120 115 Output Total 160 500 Balance -40 -385 Intake: IV Fluids 15 ABX - CEFTRIAXONE 15 IVPB 100 ABX - CEFTRIAXONE 100 Oral 120 0 Output: Urine 500 Richardson 160 Other: Estimated Void Medium # Bowel Movements 1 Estimated Stool Amount Medium Gen:awake, no distress HEENT: no thrush Heart:Regular no murmur Lungs:CTA BL And:+BS NTND soft Skin: no rash Laboratory Results - last 24 hr 06/01/19 06/02/19 06/02/19 06:40 06:13 06:13 WBC 7.0 RBC 4.63 Hgb 11.7 L Hct 36 L MCV 77 L MCH 25 L MCHC 33 RDW 16 H Plt Count 98 L MPV 8.2 Hem Pathologist Commnt Total Bilirubin 0.70 Direct Bilirubin 0.20 H Indirect Bilirubin 0.5 AST 36 ALT 63 H Alkaline Phosphatase 118 H Total Protein 6.7 Albumin 3.2 Globulin 3.5 Albumin/Globulin Ratio 0.9 L Microbiology 05/31/19 20:52 Blood Venous Aerobic Blood Culture - Preliminary No Growth Day 1 05/31/19 20:52 Blood Venous Anaerobic Blood Culture - Preliminary No Growth Day 1 05/31/19 20:52 Blood Venous Aerobic Blood Culture - Preliminary No Growth Day 1 05/31/19 20:52 Blood Venous Anaerobic Blood Culture - Preliminary No Growth Day 1 05/29/19 22:04 Blood Venous Aerobic Blood Culture - Final Morganella Morganii 05/29/19 22:04 Blood Venous Anaerobic Blood Culture - Final Morganella Morganii 05/29/19 19:13 Blood Venous Aerobic Blood Culture - Final Morganella Morganii 05/29/19 19:13 Blood Venous Anaerobic Blood Culture - Final Morganella Morganii Assessment: 1. Morganella bacteremia, resolved; pyelonephritis 2. spinal cord level, neurogenic bladder, self catheterizes Plan: 1. abx day 07/08 to cover prostatitis, can change to cipro 500 mg by mouth twice daily to finish course. FU with ID 1-2 weeks. He understands to return to ER if high fever, shaking chills, worsening of symptoms.
[2019-06-02 11:59] VITALS: BP 127/64
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
== END 2019-06-02 13:35 | disposition home or self-care (01) | DRG 463 ==
LOC: ED 15:22 → MEDTELE 18:27 → OBSVTOIN 05-30 11:00
PROVIDERS: ADMIT Internal Medicine; ATTEND Internal Medicine
DX: N39.0 Urinary tract infection, site not specified (principal); A41.59 Other Gram-negative sepsis; G82.50 Quadriplegia, unspecified; E87.2 Acidosis; I24.8 Other forms of acute ischemic heart disease; N31.9 Neuromuscular dysfunction of bladder, unspecified; D69.6 Thrombocytopenia, unspecified; G90.9 Disorder of the autonomic nervous system, unspecified; N12 Tubulo-interstitial nephritis, not specified as acute or chronic; N41.9 Inflammatory disease of prostate, unspecified; B96.89 Other specified bacterial agents as the cause of diseases classified elsewhere; I10 Essential (primary) hypertension; F41.9 Anxiety disorder, unspecified; F45.8 Other somatoform disorders; M62.838 Other muscle spasm; Z79.899 Other long term (current) drug therapy; Z83.3 Family history of diabetes mellitus; Z80.0 Family history of malignant neoplasm of digestive organs
CPT/HCPCS: 36415; 71046; 76770; 80048; 80053; 80061; 80074; 80076; 81003; 81015; 83036; 83605; 83615; 83735; 84443; 84484; 85025; 85027; 85060; 85652; 86140; 86780; 87040; 87077; 87086; 87186; 87205; 93005; 93306; 96365; 96366; 99284; A9270-GY; J0696; J0744; J1650; J2765

== ENCOUNTER 2020-09-17 16:41 | Inpatient (IN) ==
[2020-09-17] MEDS ORDERED: cefTRIAXone 2 GM ADDV.VIAL 2 GM in NS 0.9% 100 ml BAG 100 ML IVPB ONE (17:02)
[2020-09-17] MEDS ORDERED: Lactated Ringers 1000 ml BAG 1,000 ML IV ONE (17:02)
[2020-09-17 18:39] LABS: ABS Basophils 0.1 10^3/ul (0-0.2); ABS Eosinophils 0.2 10^3/ul (0-0.6); ABS Lymphocytes 1.6 10^3/ul (1.0-4.8); ABS Monocytes 1.5 10^3/ul (0-0.8); ABS Neutrophils 4.9 10^3/ul (1.5-7.7); Eosinophil % 2.1 %; Hematocrit 36 % (42-52); Lymphocyte % 19.2 %; Mean Corpuscular HGB Conc 33 g/dL (31-36); Mean Corpuscular Hemoglobin 25 pg (27-31); Mean Corpuscular Volume 76 fL (80-94); Mean Platelet Volume 7.9 fL (7.4-10.4); Nucleated Red Blood Cells % 0.1; Platelet Count 169 10^3/uL (150-450); Red Blood Count 4.72 10^6 /uL (4.18-5.48); Red Cell Distribution Width 15 % (10-15); White Blood Count 8.3 10^3/uL (3.5-10.8)
[2020-09-17] MEDS ORDERED: NS 0.9% 1000 ml BAG 1,000 ML IV SCH (18:45)
[2020-09-17 18:48] LABS: Activated Partial Thrombo Time 30.1 seconds (26.0-38.0); INR 1.35 (0.82-1.09)
[2020-09-17 18:52] LABS: Albumin 3.5 g/dL (3.2-5.2); C Reactive Protein 155.22 mg/L (<8.01); Calcium 8.6 mg/dL (8.6-10.3); EGFR African American 151.9 (>60); EGFR Non-African American 125.6 (>60); Globulin 3.5 g/dL (2-4); Potassium 4.1 mmol/L (3.5-5.0); Total Bilirubin 0.4 mg/dL (0.2-1.0)
[2020-09-17] MEDS ORDERED: Enoxaparin 40 MG/0.4 ML SYR SUBCUT SCH (19:00)
[2020-09-18 01:43] LABS: Urine Appearance Clear; Urine Bilirubin Negative (Negative); Urine Blood Negative (Negative); Urine Color Yellow; Urine Glucose Negative (Negative); Urine Ketones Negative (Negative); Urine Nitrite Negative (Negative); Urine Protein Negative (Negative); Urine Specific Gravity 1.017 (1.002-1.030); Urine Urobilinogen Positive (Negative)
[2020-09-18 05:04] LABS: ABS Basophils 0.1 10^3/ul (0-0.2); ABS Eosinophils 0.2 10^3/ul (0-0.6); ABS Lymphocytes 1.5 10^3/ul (1.0-4.8); ABS Neutrophils 3.5 10^3/ul (1.5-7.7); Eosinophil % 2.9 %; Hematocrit 32 % (42-52); Hemoglobin 10.8 g/dL (14.0-18.0); Lymphocyte % 24.2 %; Mean Corpuscular HGB Conc 34 g/dL (31-36); Mean Corpuscular Hemoglobin 26 pg (27-31); Mean Corpuscular Volume 76 fL (80-94); Mean Platelet Volume 7.9 fL (7.4-10.4); Platelet Count 157 10^3/uL (150-450); Red Blood Count 4.21 10^6 /uL (4.18-5.48); Red Cell Distribution Width 15 % (10-15); White Blood Count 6.2 10^3/uL (3.5-10.8)
[2020-09-18 05:21] LABS: EGFR African American 169.3 (>60); EGFR Non-African American 139.9 (>60); Potassium 4.1 mmol/L (3.5-5.0)
[2020-09-18] MEDS ORDERED: METHYLPHENIDATE HCL 20 MG PO SCH (09:00)
[2020-09-18 17:54] VITALS: BP 140/74
[2020-09-18] MEDS ORDERED: cefTRIAXone 2 GM ADDV.VIAL 2 GM in NS 0.9% 100 ml BAG 100 ML IV SCH (18:00)
== END 2020-09-18 15:40 | disposition home or self-care (01) ==
LOC: ED 16:41 → MED 18:42
PROVIDERS: ADMIT Internal Medicine; ATTEND Internal Medicine